=== PATIENT | male | born 1965 | race Caucasian/White ===

== ENCOUNTER 2020-06-28 06:22 | Inpatient (IN) | payer MEDICARE ==
[~2020-06-28] VITALS: Ht 180.3 cm; Wt 99.8 kg
[2020-06-28] MEDS ORDERED: HydrOXYzine PAMOATE 50 MG CAPSULE PO PRN (07:30)
[2020-06-28] MEDS ORDERED: PROMETHAZINE HCL 25 MG TABLET PO PRN (07:30)
[2020-06-28] MEDS ORDERED: MAGNESIUM HYDROXIDE SUSPENSION 30 ML UDCUP PO PRN (07:30)
[2020-06-28] MEDS ORDERED: GuaiFENesin/D-METHORPHAN [SUGAR-FREE] 200-20MG/10 ML SYRUP UDCUP PO PRN (07:30)
[2020-06-28] MEDS ORDERED: TUBERCULIN, PURIFIED PROTEIN DERIVATIVE 5 TU/0.1 ML SYRINGE ID ONE (07:30)
[2020-06-28] MEDS ORDERED: QUEtiapine FUMARATE 100 MG TABLET PO PRN (07:30)
[2020-06-28] MEDS ORDERED: LOPERAMIDE HCL 2 MG CAPSULE PO PRN (07:30)
[2020-06-28] MEDS ORDERED: ZOLPIDEM TARTRATE 10 MG TABLET PO PRN (07:30)
[2020-06-28] MEDS: OMEGA-3/DHA/EPA/FISH OIL 1,000 MG CAPSULE PO SCH (09:00)
[2020-06-28 12:18] VITALS: BP 122/82
[2020-06-28] MEDS: TraZODone HCL 50 MG TABLET PO SCH (20:32)
[2020-06-28] MEDS: THIAMINE 100 MG TABLET PO SCH ×2 (20:32→20:33)
[2020-06-28] MEDS: MELATONIN 5 MG TABLET PO SCH (20:33)
[2020-06-28] MEDS ORDERED: BACITRACIN 28 GM OINTMENT TP PRN (20:45)
[2020-06-28] MEDS ORDERED: QUEtiapine FUMARATE 200 MG TABLET PO SCH (21:00)
[2020-06-28] MEDS: BACITRACIN 28 GM OINTMENT TP SCH (21:36)
[2020-06-28 21:51] VITALS: BP 117/67
[2020-06-29 06:17] VITALS: BP 133/76
[2020-06-29 07:36] LABS: BASOPHILS % (AUTO) 1.7 % (0.0-2.0); EOSINOPHILS % (AUTO) 4.3 % (1.0-6.0); HEMATOCRIT 41.7 % (41-53); LYMPHOCYTES # (AUTO) 2.1 K/uL (1.0-4.8); MEAN CORPUSCULAR HEMOGLOBIN 31.3 pg (26.0-34.0); MEAN CORPUSCULAR HGB CONC 33.6 G/dL (31.0-37.0); MEAN CORPUSCULAR VOLUME 93 fL (80-100); MONOCYTES # (AUTO) 0.6 K/uL (0.1-1.0); MONOCYTES % (AUTO) 10.1 % (2.0-9.0); NEUTROPHILS % (AUTO) 49.9 % (40.0-70.0); PLATELET COUNT (AUTO) 276 K/uL (150-450); RED BLOOD CELL COUNT(AUTO) 4.48 MIL/uL (4.50-5.90); RED CELL DISTRIBUTION WIDTH 12.9 % (11.5-14.5)
[2020-06-29 07:54] LABS: HEMOGLOBIN A1C 5.8 % (3.8-5.6)
[2020-06-29 07:57] LABS: ALANINE AMINOTRANSFERASE 30 U/L (12-78); ALBUMIN 3.2 g/dL (3.4-5.0); ALKALINE PHOSPHATASE 62 U/L (46-116); ANION GAP 5 mmol/L (8-16); ASPARTATE AMINOTRANSFERASE 13 U/L (15-37); BILIRUBIN,TOTAL 0.4 mg/dL (0.1-1.0); CALCIUM, TOTAL 8.4 mg/dL (8.8-10.5); CARBON DIOXIDE 27 mmol/L (22-29); CHLORIDE 107 mmol/L (98-107); CHOLESTEROL 125 mg/dL (131-200); CREATININE 0.74 mg/dL (0.60-1.30); FREE T4 (FREE THYROXINE) 1.29 ng/dL (0.76-1.46); GLOMERULAR FILTR. RATE CALC > 60 mL/min (>60); GLUCOSE,RANDOM 103 mg/dL (70-110); HDL CHOLESTEROL 25 mg/dL (40-60); LDL CHOL (CALC.) 66 mg/dL (0-130); POTASSIUM 3.8 mmol/L (3.5-5.1); SODIUM SERUM 139 mmol/L (136-145); THYROID STIMULATING HORMONE 0.58 uIU/mL (0.36-3.74); TOTAL PROTEIN, SERUM 6.1 g/dL (6.4-8.2); TRIGLYCERIDES 170 mg/dL (15-150); UREA NITROGEN, BLOOD 13 mg/dL (7-18)
[2020-06-29] MEDS: THIAMINE 100 MG TABLET PO SCH ×2 (08:55→16:38)
[2020-06-29] MEDS: FOLIC ACID 1 MG TABLET PO SCH (09:00)
[2020-06-29] MEDS: BACITRACIN 28 GM OINTMENT TP SCH ×4 (09:00→16:38)
[2020-06-29] MEDS: MULTIVITAMINS WITH MINERALS, THERAPEUTIC TABLET PO SCH (09:00)
[2020-06-29] MEDS: NALTREXONE HCL 50 MG TABLET PO SCH (09:00)
[2020-06-29] MEDS: OMEGA-3/DHA/EPA/FISH OIL 1,000 MG CAPSULE PO SCH (09:00)
[2020-06-29 16:12] VITALS: BP 126/88
[2020-06-29] MEDS: LORazepam 2 MG TABLET PO PRN (17:51)
[2020-06-29] MEDS: MELATONIN 5 MG TABLET PO SCH (20:19)
[2020-06-29] MEDS: TraZODone HCL 50 MG TABLET PO SCH (20:19)
[2020-06-29] MEDS ORDERED: QUEtiapine FUMARATE 200 MG TABLET PO SCH (21:00)
[2020-06-30 08:32] VITALS: BP 137/69
[2020-06-30] MEDS: OMEGA-3/DHA/EPA/FISH OIL 1,000 MG CAPSULE PO SCH (09:00)
[2020-06-30] MEDS: BuPROPion HCL XL 150 MG ER TABLET PO SCH (09:06)
[2020-06-30] MEDS: THIAMINE 100 MG TABLET PO SCH ×2 (09:06→17:51)
[2020-06-30] MEDS: MULTIVITAMINS WITH MINERALS, THERAPEUTIC TABLET PO SCH (09:06)
[2020-06-30] MEDS: BACITRACIN 28 GM OINTMENT TP SCH ×4 (09:06→17:51)
[2020-06-30] MEDS: FOLIC ACID 1 MG TABLET PO SCH (09:06)
[2020-06-30] MEDS: NALTREXONE HCL 50 MG TABLET PO SCH (09:06)
[2020-06-30 16:16] VITALS: BP 136/73
[2020-06-30] MEDS ORDERED: NICOTINE 21 MG/24 HOUR PATCH TD PRN (20:15)
[2020-06-30] MEDS: MELATONIN 5 MG TABLET PO SCH (20:24)
[2020-06-30] MEDS ORDERED: QUEtiapine FUMARATE 300 MG TABLET PO SCH (21:00)
[2020-06-30] MEDS: NICOTINE POLACRILEX 2 MG LOZENGE PO PRN (21:51)
[2020-07-01 00:54] VITALS: BP 127/89
[2020-07-01] MEDS: THIAMINE 100 MG TABLET PO SCH ×2 (08:50→17:02)
[2020-07-01] MEDS: FOLIC ACID 1 MG TABLET PO SCH (08:50)
[2020-07-01] MEDS: MULTIVITAMINS WITH MINERALS, THERAPEUTIC TABLET PO SCH (08:50)
[2020-07-01] MEDS: BuPROPion HCL XL 150 MG ER TABLET PO SCH (08:50)
[2020-07-01] MEDS: NALTREXONE HCL 50 MG TABLET PO SCH (08:51)
[2020-07-01] MEDS: OMEGA-3/DHA/EPA/FISH OIL 1,000 MG CAPSULE PO SCH (08:57)
[2020-07-01] MEDS: BACITRACIN 28 GM OINTMENT TP SCH ×4 (08:58→17:30)
[2020-07-01 09:35] VITALS: BP 131/83
[2020-07-01] MEDS: NICOTINE POLACRILEX 2 MG LOZENGE PO PRN ×3 (15:15→20:47)
[2020-07-01 16:04] VITALS: BP 145/90
[2020-07-01] MEDS: QUEtiapine FUMARATE 200 MG TABLET PO SCH (20:18)
[2020-07-01] MEDS: MELATONIN 5 MG TABLET PO SCH (20:18)
[2020-07-02 05:55] VITALS: BP 125/83
[2020-07-02 08:46] VITALS: BP 117/66
[2020-07-02] MEDS: OMEGA-3/DHA/EPA/FISH OIL 1,000 MG CAPSULE PO SCH (08:56)
[2020-07-02] MEDS: FOLIC ACID 1 MG TABLET PO SCH (08:56)
[2020-07-02] MEDS: BuPROPion HCL XL 150 MG ER TABLET PO SCH (08:56)
[2020-07-02] MEDS: BACITRACIN 28 GM OINTMENT TP SCH ×4 (08:56→16:35)
[2020-07-02] MEDS: MULTIVITAMINS WITH MINERALS, THERAPEUTIC TABLET PO SCH (08:56)
[2020-07-02] MEDS: THIAMINE 100 MG TABLET PO SCH ×2 (08:56→16:33)
[2020-07-02] MEDS: NALTREXONE HCL 50 MG TABLET PO SCH (08:57)
[2020-07-02] MEDS: NICOTINE POLACRILEX 2 MG LOZENGE PO PRN ×3 (12:51→18:44)
[2020-07-02 16:12] VITALS: BP 115/89
[2020-07-02] MEDS: QUEtiapine FUMARATE 200 MG TABLET PO SCH (20:11)
[2020-07-02] MEDS: MELATONIN 5 MG TABLET PO SCH (20:11)
[2020-07-03 00:19] VITALS: BP 115/81
[2020-07-03] MEDS: MAG HYDROX/AL HYDROX/SIMETH ES 30 ML SUSPENSION UDCUP PO PRN (01:38)
[2020-07-03 07:20] LABS: COVID AG,FIA SOURCE NASOPHARYNGEAL
[2020-07-03] MEDS: BuPROPion HCL XL 150 MG ER TABLET PO SCH (08:47)
[2020-07-03] MEDS: FOLIC ACID 1 MG TABLET PO SCH (08:47)
[2020-07-03] MEDS: MULTIVITAMINS WITH MINERALS, THERAPEUTIC TABLET PO SCH (08:47)
[2020-07-03] MEDS: NALTREXONE HCL 50 MG TABLET PO SCH (08:47)
[2020-07-03] MEDS: OMEGA-3/DHA/EPA/FISH OIL 1,000 MG CAPSULE PO SCH (08:47)
[2020-07-03] MEDS: THIAMINE 100 MG TABLET PO SCH ×2 (08:47→16:12)
[2020-07-03] MEDS: BACITRACIN 28 GM OINTMENT TP SCH ×4 (08:48→16:13)
[2020-07-03] MEDS: NICOTINE POLACRILEX 2 MG LOZENGE PO PRN ×2 (11:25→15:48)
[2020-07-03 16:13] VITALS: BP 135/85
[2020-07-03] MEDS: MELATONIN 5 MG TABLET PO SCH (21:46)
[2020-07-03] MEDS: QUEtiapine FUMARATE 200 MG TABLET PO SCH (21:46)
[2020-07-04 00:18] VITALS: BP 125/82
[2020-07-04 08:12] VITALS: BP 127/89
[2020-07-04] MEDS: NALTREXONE HCL 50 MG TABLET PO SCH (08:12)
[2020-07-04] MEDS: BuPROPion HCL XL 150 MG ER TABLET PO SCH (08:12)
[2020-07-04] MEDS: FOLIC ACID 1 MG TABLET PO SCH (08:12)
[2020-07-04] MEDS: OMEGA-3/DHA/EPA/FISH OIL 1,000 MG CAPSULE PO SCH (08:12)
[2020-07-04] MEDS: THIAMINE 100 MG TABLET PO SCH ×2 (08:12→16:15)
[2020-07-04] MEDS: MULTIVITAMINS WITH MINERALS, THERAPEUTIC TABLET PO SCH (08:12)
[2020-07-04] MEDS: BACITRACIN 28 GM OINTMENT TP SCH ×2 (08:13→16:15)
[2020-07-04] MEDS: NICOTINE POLACRILEX 2 MG LOZENGE PO PRN ×4 (12:16→20:10)
[2020-07-04 16:20] VITALS: BP 149/94
[2020-07-04] MEDS: LORazepam 2 MG TABLET PO PRN (18:05)
[2020-07-04] MEDS: QUEtiapine FUMARATE 200 MG TABLET PO SCH (20:10)
[2020-07-04] MEDS: MELATONIN 5 MG TABLET PO SCH (20:10)
[2020-07-05 01:37] VITALS: BP 128/79
[2020-07-05] MEDS: NICOTINE POLACRILEX 2 MG LOZENGE PO PRN ×3 (01:39→16:12)
[2020-07-05] MEDS: MAG HYDROX/AL HYDROX/SIMETH ES 30 ML SUSPENSION UDCUP PO PRN ×3 (02:31→22:10)
[2020-07-05] MEDS: MULTIVITAMINS WITH MINERALS, THERAPEUTIC TABLET PO SCH (08:11)
[2020-07-05] MEDS: THIAMINE 100 MG TABLET PO SCH ×2 (08:11→16:11)
[2020-07-05] MEDS: BACITRACIN 28 GM OINTMENT TP SCH ×2 (08:11→19:22)
[2020-07-05] MEDS: BuPROPion HCL XL 150 MG ER TABLET PO SCH (08:11)
[2020-07-05] MEDS: OMEGA-3/DHA/EPA/FISH OIL 1,000 MG CAPSULE PO SCH (08:11)
[2020-07-05] MEDS: FOLIC ACID 1 MG TABLET PO SCH (08:11)
[2020-07-05] MEDS: NALTREXONE HCL 50 MG TABLET PO SCH (08:12)
[2020-07-05 09:18] VITALS: BP 144/93
[2020-07-05 09:34] VITALS: BP 140/81
[2020-07-05] MEDS: LORazepam 2 MG TABLET PO PRN ×2 (13:27→19:22)
[2020-07-05] MEDS: ACETAMINOPHEN 325 MG TABLET PO PRN (13:27)
[2020-07-05 16:14] VITALS: BP 126/92
[2020-07-05] MEDS: MELATONIN 5 MG TABLET PO SCH (20:26)
[2020-07-05] MEDS: QUEtiapine FUMARATE 200 MG TABLET PO SCH (20:26)
[2020-07-06 00:37] VITALS: BP 131/79
[2020-07-06] MEDS: NICOTINE POLACRILEX 2 MG LOZENGE PO PRN ×5 (05:00→17:19)
[2020-07-06 08:04] VITALS: BP 135/72
[2020-07-06] MEDS: MULTIVITAMINS WITH MINERALS, THERAPEUTIC TABLET PO SCH (08:07)
[2020-07-06] MEDS: THIAMINE 100 MG TABLET PO SCH ×2 (08:07→16:25)
[2020-07-06] MEDS: BuPROPion HCL XL 150 MG ER TABLET PO SCH (08:08)
[2020-07-06] MEDS: FOLIC ACID 1 MG TABLET PO SCH (08:08)
[2020-07-06] MEDS: NALTREXONE HCL 50 MG TABLET PO SCH (08:08)
[2020-07-06] MEDS: OMEGA-3/DHA/EPA/FISH OIL 1,000 MG CAPSULE PO SCH (08:08)
[2020-07-06 16:13] VITALS: BP 133/70
[2020-07-06] MEDS: LORazepam 2 MG TABLET PO PRN (16:40)
[2020-07-06] MEDS: QUEtiapine FUMARATE 200 MG TABLET PO SCH (20:18)
[2020-07-06] MEDS: MELATONIN 5 MG TABLET PO SCH (20:18)
[2020-07-07 00:42] VITALS: BP 129/79
[2020-07-07 08:04] VITALS: BP 118/84
[2020-07-07] MEDS: OMEGA-3/DHA/EPA/FISH OIL 1,000 MG CAPSULE PO SCH (09:00)
[2020-07-07] MEDS: NALTREXONE HCL 50 MG TABLET PO SCH (09:08)
[2020-07-07] MEDS: FOLIC ACID 1 MG TABLET PO SCH (09:08)
[2020-07-07] MEDS: THIAMINE 100 MG TABLET PO SCH (09:10)
[2020-07-07] MEDS: MULTIVITAMINS WITH MINERALS, THERAPEUTIC TABLET PO SCH (09:11)
[2020-07-07] MEDS: BuPROPion HCL XL 150 MG ER TABLET PO SCH (09:11)
[2020-07-07] MEDS: NICOTINE POLACRILEX 2 MG LOZENGE PO PRN ×4 (11:13→20:15)
[2020-07-07] MEDS: LORazepam 2 MG TABLET PO PRN ×2 (12:20→19:44)
[2020-07-07 16:23] VITALS: BP 137/90
[2020-07-07] MEDS: QUEtiapine FUMARATE 200 MG TABLET PO SCH (20:16)
[2020-07-07] MEDS: MELATONIN 5 MG TABLET PO SCH (20:16)
[2020-07-08 01:11] VITALS: BP 120/93
[2020-07-08] MEDS: MAG HYDROX/AL HYDROX/SIMETH ES 30 ML SUSPENSION UDCUP PO PRN (02:55)
[2020-07-08 08:26] VITALS: BP 124/86
[2020-07-08] MEDS: MULTIVITAMINS WITH MINERALS, THERAPEUTIC TABLET PO SCH (08:29)
[2020-07-08] MEDS: NALTREXONE HCL 50 MG TABLET PO SCH (08:29)
[2020-07-08] MEDS: BuPROPion HCL XL 150 MG ER TABLET PO SCH (08:30)
[2020-07-08] MEDS: OMEGA-3/DHA/EPA/FISH OIL 1,000 MG CAPSULE PO SCH (08:34)
[2020-07-08] MEDS: NICOTINE POLACRILEX 2 MG LOZENGE PO PRN ×5 (08:49→18:54)
[2020-07-08] MEDS: LORazepam 2 MG TABLET PO PRN ×2 (11:55→17:25)
[2020-07-08 16:04] VITALS: BP 129/93
[2020-07-08] MEDS: MELATONIN 5 MG TABLET PO SCH (20:09)
[2020-07-08] MEDS: QUEtiapine FUMARATE 200 MG TABLET PO SCH (20:09)
[2020-07-09 00:47] VITALS: BP 126/88
[2020-07-09 07:58] LABS: COVID AG,FIA SOURCE NASOPHARYNGEAL
[2020-07-09 08:13] VITALS: BP 116/80
[2020-07-09] MEDS: MULTIVITAMINS WITH MINERALS, THERAPEUTIC TABLET PO SCH (08:44)
[2020-07-09] MEDS: BuPROPion HCL XL 150 MG ER TABLET PO SCH (08:44)
[2020-07-09] MEDS: NALTREXONE HCL 50 MG TABLET PO SCH (08:45)
[2020-07-09] MEDS: NICOTINE POLACRILEX 2 MG LOZENGE PO PRN ×5 (08:45→19:11)
[2020-07-09] MEDS: OMEGA-3/DHA/EPA/FISH OIL 1,000 MG CAPSULE PO SCH (08:46)
[2020-07-09] MEDS: LORazepam 2 MG TABLET PO PRN ×2 (12:16→17:00)
[2020-07-09 16:05] VITALS: BP 135/84
[2020-07-09] MEDS: MELATONIN 5 MG TABLET PO SCH (20:04)
[2020-07-09] MEDS: QUEtiapine FUMARATE 200 MG TABLET PO SCH (20:04)
[2020-07-10] MEDS: NICOTINE POLACRILEX 2 MG LOZENGE PO PRN ×6 (02:06→18:30)
[2020-07-10] MEDS: LORazepam 2 MG TABLET PO PRN ×3 (02:06→17:47)
[2020-07-10 02:13] VITALS: BP 152/75
[2020-07-10] MEDS: MAG HYDROX/AL HYDROX/SIMETH ES 30 ML SUSPENSION UDCUP PO PRN (03:02)
[2020-07-10] MEDS: OMEGA-3/DHA/EPA/FISH OIL 1,000 MG CAPSULE PO SCH ×2 (08:17→09:00)
[2020-07-10] MEDS: NALTREXONE HCL 50 MG TABLET PO SCH (08:17)
[2020-07-10] MEDS: BuPROPion HCL XL 150 MG ER TABLET PO SCH (08:17)
[2020-07-10] MEDS: MULTIVITAMINS WITH MINERALS, THERAPEUTIC TABLET PO SCH (08:17)
[2020-07-10 09:10] VITALS: BP 136/90
[2020-07-10] MEDS: ACETAMINOPHEN 325 MG TABLET PO PRN ×2 (14:57→19:17)
[2020-07-10 16:14] VITALS: BP 132/82
[2020-07-10] MEDS: MELATONIN 5 MG TABLET PO SCH (20:33)
[2020-07-10] MEDS: QUEtiapine FUMARATE 200 MG TABLET PO SCH (20:33)
[2020-07-11] MEDS: MAG HYDROX/AL HYDROX/SIMETH ES 30 ML SUSPENSION UDCUP PO PRN (00:51)
[2020-07-11] MEDS: NICOTINE POLACRILEX 2 MG LOZENGE PO PRN ×5 (05:04→18:14)
[2020-07-11 05:08] VITALS: BP 127/85
[2020-07-11] MEDS: LORazepam 2 MG TABLET PO PRN ×3 (05:08→14:19)
[2020-07-11 08:09] VITALS: BP 129/94
[2020-07-11] MEDS: NALTREXONE HCL 50 MG TABLET PO SCH (08:22)
[2020-07-11] MEDS: BuPROPion HCL XL 150 MG ER TABLET PO SCH (08:22)
[2020-07-11] MEDS: MULTIVITAMINS WITH MINERALS, THERAPEUTIC TABLET PO SCH (08:22)
[2020-07-11] MEDS: OMEGA-3/DHA/EPA/FISH OIL 1,000 MG CAPSULE PO SCH (08:28)
[2020-07-11 16:03] VITALS: BP 100/66
[2020-07-11] MEDS: QUEtiapine FUMARATE 200 MG TABLET PO SCH (20:07)
[2020-07-11] MEDS: MELATONIN 5 MG TABLET PO SCH (20:07)
[2020-07-12 04:50] VITALS: BP 118/80
[2020-07-12] MEDS: NICOTINE POLACRILEX 2 MG LOZENGE PO PRN ×6 (05:45→20:06)
[2020-07-12 07:52] VITALS: BP 109/69
[2020-07-12] MEDS: MULTIVITAMINS WITH MINERALS, THERAPEUTIC TABLET PO SCH (08:00)
[2020-07-12] MEDS: BuPROPion HCL XL 150 MG ER TABLET PO SCH (08:01)
[2020-07-12] MEDS: NALTREXONE HCL 50 MG TABLET PO SCH (08:01)
[2020-07-12 08:02] VITALS: BP 109/69
[2020-07-12] MEDS: OMEGA-3/DHA/EPA/FISH OIL 1,000 MG CAPSULE PO SCH (08:13)
[2020-07-12] MEDS: LORazepam 2 MG TABLET PO PRN ×3 (09:38→16:24)
[2020-07-12] MEDS ORDERED: OMEG-135 PO (15:26)
[2020-07-12] MEDS ORDERED: MELA5TAB3 PO (15:26)
[2020-07-12] MEDS ORDERED: QUET200T29 PO (15:26)
[2020-07-12] MEDS ORDERED: BUPR-49 PO (15:26)
[2020-07-12 16:00] VITALS: BP 108/72
[2020-07-12] MEDS: MELATONIN 5 MG TABLET PO SCH (20:06)
[2020-07-12] MEDS: QUEtiapine FUMARATE 200 MG TABLET PO SCH (20:06)
[2020-07-13] MEDS: NICOTINE POLACRILEX 2 MG LOZENGE PO PRN ×2 (00:08→05:07)
[2020-07-13] MEDS: LORazepam 2 MG TABLET PO PRN ×2 (00:08→05:07)
[2020-07-13 00:50] VITALS: BP 125/72
[2020-07-13 05:06] VITALS: BP 120/89
[2020-07-13] MEDS: NALTREXONE HCL 50 MG TABLET PO SCH (08:03)
[2020-07-13] MEDS: MULTIVITAMINS WITH MINERALS, THERAPEUTIC TABLET PO SCH (08:03)
[2020-07-13] MEDS: BuPROPion HCL XL 150 MG ER TABLET PO SCH (08:03)
[2020-07-13] MEDS: OMEGA-3/DHA/EPA/FISH OIL 1,000 MG CAPSULE PO SCH (08:05)
[2020-07-13 08:06] VITALS: BP 127/90
== END 2020-07-13 13:10 | disposition home or self-care (01) | DRG 885 ==
LOC: B2S 10:07
PROVIDERS: ADMIT Psychiatry & Neurology Psychiatry; ATTEND Psychiatry & Neurology Psychiatry
DX: F25.9 Schizoaffective disorder, unspecified (principal); L97.429 Non-pressure chronic ulcer of left heel and midfoot with unspecified severity; Z55.9 Problems related to education and literacy, unspecified; Z20.822 Contact with and (suspected) exposure to COVID-19; F12.90 Cannabis use, unspecified, uncomplicated; Z59.9 Problem related to housing and economic circumstances, unspecified; Z65.3 Problems related to other legal circumstances; Z87.891 Personal history of nicotine dependence
CPT/HCPCS: 80053; 80061; 83036; 84439; 84443; 85025; 86592; 87426; 99285; A9575